=== PATIENT | male | born 1970 | race Caucasian/White ===

== ENCOUNTER 2019-01-31 18:52 | Inpatient (IN) ==
[2019-01-31] MEDS ORDERED: NICOTINE 21 MG/24 HR TDSY TD STA (19:19)
[2019-01-31 19:57] LABS: Appearance Urine Clear (Clear); Bilirubin Urine Negative (Negative); Blood Urine Negative (Negative); Color Urine Yellow; Glucose Urine UA Negative (Negative); Ketones Urine Negative (Negative); Leukocyte Esterase Urine Negative (Negative); Nitrite Urine Negative (Negative); Protein Urine Negative (Negative); Specific Gravity Urine 1.017 (1.000-1.030); Urobilinogen Urine Negative (Negative)
[2019-01-31 20:04] LABS: Basophils # (auto) 0.03 K/uL (0-0.2); Basophils % (auto) 0.6 %; Eosinophils # (auto) 0.01 K/uL (0-0.5); Eosinophils % (auto) 0.2 %; Hematocrit (blood only) 35.3 % (42-52); Hemoglobin 12.2 g/dL (14.0-18.0); Immature Granulocytes # (auto) 0.01 K/uL (0.00-0.02); Immature Granulocytes % (auto) 0.2 %; Lymphocytes # (auto) 1.97 K/uL (1.2-3.4); Lymphocytes % (auto) 40.6 %; Mean Corpuscular Hgb Conc 34.6 g/dL (32-36); Mean Corpuscular Volume 97.8 fL (80-100); Mean Platelet Volume 10.6 fL (7.4-10.4); Monocytes # (auto) 0.48 K/uL (0.11-0.59); Monocytes % (auto) 9.9 %; Neutrophils # (auto) 2.35 K/uL (1.4-6.5); Neutrophils % (auto) 48.5 %; Platelet Count 155 K/uL (130-400); RDW Standard Deviation 45.8 fL (36.4-46.3); Red Blood Count 3.61 M/uL (4.7-6.1); White Blood Count 4.85 K/uL (4.8-10.8)
[2019-01-31 20:22] LABS: Albumin Level 3.8 gm/dl (3.4-5.0); BUN Creatinine Ratio 14.5 (10-20); Calcium 8.7 mg/dl (8.5-10.1); Creatinine Clr Calc Pharmacy 104.3 ml/min; Est GFR (African American) 113.6; Potassium 3.8 mmol/L (3.5-5.1)
[2019-01-31 20:29] LABS: Amphetamines+Metham, Urine Neg (Neg); Barbiturates, Urine Neg (Neg); Benzodiazepine, Urine Neg (Neg); Cocaine, Urine Neg (Neg); MDMA (Ecstacy), Urine Neg (Neg); Methadone, Urine Neg (Neg); Opiate, Urine Neg (Neg); Phencyclidine, Urine Neg (Neg)
[2019-01-31 20:33] LABS: Bilirubin,Total 0.3 mg/dl (0.2-1); Globulin 3.8 gm/dl (2.5-4.0); Total Protein 7.6 gm/dl (6.4-8.2)
[2019-01-31 20:46] LABS: T4 Free Thyroxine 0.73 ng/dl (0.8-1.6)
[2019-01-31 20:53] LABS: Acetaminophen < 2 ug/ml (10-30); Salicylate < 1.7 mg/dl (2.8-20)
[2019-01-31] MEDS ORDERED: HALOPERIDOL LACTATE 5 MG/ML 1 ML VIAL IM STA (21:16)
[2019-01-31] MEDS ORDERED: LORazepam 2 MG/ML VIAL (IM USE) IM STA (21:16)
[2019-01-31] MEDS ORDERED: ALBUTEROL HFA 8 GM INHALER ONE (22:19)
[2019-01-31] MEDS ORDERED: ALBUTEROL HFA 8 GM INHALER INH ONE (22:20)
--- NOTE | 2019-02-01 00:37 | Emergency Department Note ---
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 Per the police officers, the patient's daughter called his neighbor to check on him, and he told the neighbor she "better leave before I kill you and myself." The officers state that the patient said he "wanted to shoot himself and end the pain." The police officers not that that he had a gun under his pillow. Per the police officers, the patient has a history of threatening to shoot himself. The patient states that he texted his daughter that he was "tired and wanted to sleep for a very long time." He reports that his daughter read the text incorrectly, stating that he has no intentions of self-harm. The patient reports that he "woke up on the wrong side of the bed" this morning, but he has been "happy go ben" until today. The patient denies hallucinations, hearing voices, SI, HI, and history of self-harm. He admits to alcohol use every three days and tobacco use. The patient denies any drug use. 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 Clerk Required: No Beliefs That Will Affect Care: None Feels Safe at Home: Yes Smoking Status: Current every day smoker Tobacco Type: smokeless tobacco Review of Systems See HPI for pertinent positives & negatives. and A total of 10 systems reviewed and were otherwise negative Physical Exam Vital Signs Vital Signs - 24 hr 01/31/19 18:55 02/01/19 05:02 02/01/19 05:56 Sepsis Recent Fever Within 48 Hours No Sepsis Action Taken by Nursing No Action Required Pulse Rate [Right] 89 66 Respiratory Rate 18 18 18 Respiratory Effort / Characteristics Non-Labored Spontaneous Non-Labored Spontaneous Non-Labored Respiratory Depth Normal Normal Normal Blood Pressure 141/91 H Blood Pressure [Right Arm] 124/74 135/72 Blood Pressure Mean 107 Blood Pressure Mean [Right Arm] 90 93 Pulse Oximetry 98 96 Oxygen Delivery Method Room Air Room Air GENERAL: Well appearing, well nourished, NAD, non-toxic. Agitated. EYE EXAM: Normal conjunctiva. PERRL, no anisocoria and EOM's grossly intact w/o pain. OROPHARYNX: Moist mucus membranes. Grossly normal dentition. NECK: Supple, no nuchal rigidity, no adenopathy, non-tender. No signs of meningismus. LUNGS: Clear to auscultation. Normal chest wall mechanics. HEART: NSR, no MRG. ABDOMEN: Abdomen soft, non-tender, normo-active bowel sounds, no masses, no rebound or guarding. BACK: No CVA TTP. SKIN: No rashes and no bruising. UPPER EXTREMITIES: Upper extremities are grossly normal. LOWER EXTREMITIES: No pitting edema. No calf pain. NEURO EXAM: A&O x3, cranial nerves II-XII grossly intact, normal speech, moves all 4 extremities on command w/o issue. PSYCH: Negative SI, HI, or AVH. Course 1904: The patient was evaluated in room A08. A complete history and physical exa m was performed. 2152: I had a long conversation with the patient about the plan and his results. 0130: The patient was signed out to Dr. Briceno at the change of shift. Administered Medications Discontinued Medications Albuterol (Ventolin Hfa) Confirm Administered Dose 60 puffs .ROUTE .STK-MED ONE Stop: 01/31/19 22:20 Last Admin: 01/31/19 22:27 Dose: Not Given Documented by: [id number] Albuterol (Ventolin Hfa) 2 puffs INH NOW ONE Stop: 01/31/19 22:21 Last Admin: 01/31/19 22:27 Dose: 2 puffs Documented by: [id number] Gabapentin (Neurontin) 1,200 mg PO TODAY@1400 AMPARO Stop: 02/01/19 14:01 Last Admin: 02/01/19 14:44 Dose: 1,200 mg Documented by: [id number] Haloperidol Lactate (Haldol) 5 mg IM NOW STA Stop: 01/31/19 21:17 Last Admin: 01/31/19 22:26 Dose: Not Given Documented by: [id number] Lorazepam (Ativan) 2 mg IM NOW STA Stop: 01/31/19 21:17 Last Admin: 01/31/19 22:26 Dose: Not Given Documented by: [id number] Nicotine (Nicoderm Cq) 21 mg TD NOW STA Stop: 01/31/19 19:20 Last Admin: 01/31/19 20:05 Dose: Not Given Documented by: [id number] Medical Decision Making Differential Diagnosis Etiologies such as psychiatric disorder, infection, hypoglycemia, electrolyte abnormalities, cardiac sources, intracerebral event, toxicological process, neurologic disorder, as well as others were entertained. Medical Records Attestation: I reviewed the patient's medical records. Home Medications Current Medication List: was personally reviewed by me Laboratory Data Attestation: I reviewed the patient's lab results. Result diagrams: 01/31/19 19:51 01/31/19 19:51 Lab Results 01/31/19 01/31/19 01/31/19 Range/Units 19:51 19:51 19:51 WBC 4.85 (4.8-10.8) K/uL RBC 3.61 L (4.7-6.1) M/uL Hgb 12.2 L (14.0-18.0) g/dL Hct 35.3 L (42-52) % MCV 97.8 (80-100) fL MCH 33.8 (25-34) pg MCHC 34.6 (32-36) g/dL RDW Std Deviation 45.8 (36.4-46.3) fL RDW Coeff of Miranda 13.0 (11.5-14.5) % Plt Count 155 (130-400) K/uL MPV 10.6 H (7.4-10.4) fL Immature Gran % (Auto) 0.2 % Neut % (Auto) 48.5 % Lymph % (Auto) 40.6 % [place] % (Auto) 9.9 % Eos % (Auto) 0.2 % Baso % (Auto) 0.6 % Immature Gran # (Auto) 0.01 (0.00-0.02) K/uL Neut # (Auto) 2.35 (1.4-6.5) K/uL Lymph # (Auto) 1.97 (1.2-3.4) K/uL [place] # (Auto) 0.48 (0.11-0.59) K/uL Eos # (Auto) 0.01 (0-0.5) K/uL Baso # (Auto) 0.03 (0-0.2) K/uL Sodium 144 (136-145) mmol/L Potassium 3.8 (3.5-5.1) mmol/L Chloride 107 (98-107) mmol/L Carbon Dioxide 26 (21-32) mmol/L Anion Gap 11.0 (3-11) BUN 13 (7-18) mg/dl Creatinine 0.92 (0.6-1.4) mg/dl Est Cr Clr Drug Dosing 104.3 ml/min Est GFR ( Amer) 113.6 Est GFR (Non-Af Amer) 98.0 BUN/Creatinine Ratio 14.5 (10-20) Glucose 92 (70-99) mg/dl Calcium 8.7 (8.5-10.1) mg/dl Total Bilirubin 0.3 (0.2-1) mg/dl AST 48 H (15-37) U/L ALT 38 (12-78) U/L Alkaline Phosphatase 66 (45-117) U/L Total Protein 7.6 (6.4-8.2) gm/dl Albumin 3.8 (3.4-5.0) gm/dl Globulin 3.8 (2.5-4.0) gm/dl Albumin/Globulin Ratio 1.0 (0.9-2) TSH 0.299 L (0.300-4.500) uIu/ml Free T4 0.73 L (0.8-1.6) ng/dl Urine Color Urine Appearance (Clear) Urine pH (4.5-7.5) Ur Specific [place] (1.000-1.030) Urine Protein (Negative) Urine Glucose (UA) (Negative) Urine Ketones (Negative) Urine Blood (Negative) Urine Nitrite (Negative) Urine Bilirubin (Negative) Urine Urobilinogen (Negative) Ur Leukocyte Esterase (Negative) Salicylates < 1.7 L (2.8-20) mg/dl Urine Opiates Screen (Neg) Ur Methadone, Qual (Neg) Acetaminophen < 2 L (10-30) ug/ml Urine Barbiturates (Neg) Ur Phencyclidine (PCP) (Neg) U Amphetamin/Meth Scrn (Neg) MDMA (Ecstasy) Screen (Neg) U Benzodiazepines Scrn (Neg) Ur Cocaine Metabolite (Neg) U Marijuana (THC) Screen (Neg) Ethyl Alcohol mg/dL (0-3) mg/dl 01/31/19 01/31/19 01/31/19 Range/Units 19:51 Unknown Unknown WBC (4.8-10.8) K/uL RBC (4.7-6.1) M/uL Hgb (14.0-18.0) g/dL Hct (42-52) % MCV (80-100) fL MCH (25-34) pg MCHC (32-36) g/dL RDW Std Deviation (36.4-46.3) fL RDW Coeff of Miranda (11.5-14.5) % Plt Count (130-400) K/uL MPV (7.4-10.4) fL Immature Gran % (Auto) % Neut % (Auto) % Lymph % (Auto) % [place] % (Auto) % Eos % (Auto) % Baso % (Auto) % Immature Gran # (Auto) (0.00-0.02) K/uL Neut # (Auto) (1.4-6.5) K/uL Lymph # (Auto) (1.2-3.4) K/uL [place] # (Auto) (0.11-0.59) K/uL Eos # (Auto) (0-0.5) K/uL Baso # (Auto) (0-0.2) K/uL Sodium (136-145) mmol/L Potassium (3.5-5.1) mmol/L Chloride (98-107) mmol/L Carbon Dioxide (21-32) mmol/L Anion Gap (3-11) BUN (7-18) mg/dl Creatinine (0.6-1.4) mg/dl Est Cr Clr Drug Dosing ml/min Est GFR ( Amer) Est GFR (Non-Af Amer) BUN/Creatinine Ratio (10-20) Glucose (70-99) mg/dl Calcium (8.5-10.1) mg/dl Total Bilirubin (0.2-1) mg/dl AST (15-37) U/L ALT (12-78) U/L Alkaline Phosphatase (45-117) U/L Total Protein (6.4-8.2) gm/dl Albumin (3.4-5.0) gm/dl Globulin (2.5-4.0) gm/dl Albumin/Globulin Ratio (0.9-2) TSH (0.300-4.500) uIu/ml Free T4 (0.8-1.6) ng/dl Urine Color Yellow Urine Appearance Clear (Clear) Urine pH 5.0 (4.5-7.5) Ur Specific [place] 1.017 (1.000-1.030) Urine Protein Negative (Negative) Urine Glucose (UA) Negative (Negative) Urine Ketones Negative (Negative) Urine Blood Negative (Negative) Urine Nitrite Negative (Negative) Urine Bilirubin Negative (Negative) Urine Urobilinogen Negative (Negative) Ur Leukocyte Esterase Negative (Negative) Salicylates (2.8-20) mg/dl Urine Opiates Screen Neg (Neg) Ur Methadone, Qual Neg (Neg) Acetaminophen (10-30) ug/ml Urine Barbiturates Neg (Neg) Ur Phencyclidine (PCP) Neg (Neg) U Amphetamin/Meth Scrn Neg (Neg) MDMA (Ecstasy) Screen Neg (Neg) U Benzodiazepines Scrn Neg (Neg) Ur Cocaine Metabolite Neg (Neg) U Marijuana (THC) Screen Neg (Neg) Ethyl Alcohol mg/dL 373.2 H (0-3) mg/dl Blood Pressure Blood Pressure Findings: Elevated blood pressure Blood Pressure Disposition: Referred to patients primary care provider MDM Narrative The patient is a 48 white male w/ PMHx of abdominal cancer who presents to the ED w/ CC with episodes of 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 Patient was seen and evaluated the bedside. Patient was brought in by police as the patient had sent a text message and apparently had stated that he was cannot shoot someone and that she is himself. Patient does have access to guns. The patient reportedly is intoxicated. Patient currently denies any acute complaints including SI HI or AVH. The patient initially was hesitant to give b lood and urine but after further discussion he was amenable. Work was obtained along with urinalysis. The patient was ordered a diet and a nicotine patch. Patient's blood work showed mildly low free T4 and an elevated alcohol level. Would be deemed medically clear for evaluation by the psych employment evaluator/case manager at 6 AM. Patient was signed out to the nighttime physician pending evaluation in the morning. Impression & Plan Suicidal ideation, Encounter for tobacco use cessation counseling, Alcohol abuse Discharge Plan Visit Data *Final* Discharge Date/Time: 02/01/19 08:54 Chief Complaint: Mental Health Evaluation Stated Complaint: MENTAL HEALTH EVAL ED Provider: Bethel Lopez Discharge Problem: Suicidal ideation, Encounter for tobacco use cessation counseling, Alcohol abuse Patient Disposition: Admitted As Inpatient Discharge Instructions Interventions: ED Discharge Assessment Last Done: 02/01/19 08:54 The chaloibe's documentation has been prepared under my direction and personally reviewed by me in its entirety. I confirm that the note above accurately reflects all work, treatment, procedures, and medical decision making performed by me.
--- NOTE | 2019-02-01 05:12 | Emergency Department Note ---
ED Visit Note I received this patient in signout at the change of shift from Dr. Walker pending a more sober state for mental health evaluation. Upon my evaluation, the patient stated he has "dying of stomach cancer." He states they diagnosed this at [facility] after they found black spots on his lungs. Patient was questioned about an upper endoscopy and/or the diagnostic tests. Patient denied having an upper endoscopy, stated he did not remember the name of the doctor. He would not sign consent for the medical records to be released stating "they are my records." The fact remains the patient was in an altercation with the state police last night. He threatened his own life and the neighbors life with a gun. I do think he is impulsive and evades questioning now while sober. He is not reliable for outpatient follow-up. The 302 petitioning statement filed by police has been signed. A bed search is currently underway. Case has been signed out to Dr. Lopez pending disposition. .
--- NOTE | 2019-02-01 07:20 | Emergency Department Note ---
ED Visit Note Received patient in signout. Patient here under 302 warrant. Patient was accepted to [address] .
[2019-02-01] MEDS ORDERED: MAGNESIUM HYDROXIDE SUSP 30 ML UDC PO PRN (08:36)
[2019-02-01] MEDS ORDERED: BISMUTH SUBSALICYLATE PER ML OMNICELL CHARGE PO PRN (08:36)
[2019-02-01] MEDS ORDERED: SODIUM CHLORIDE 0.65% NA SOLN 45 ML (OCEAN) PRN (08:36)
[2019-02-01] MEDS ORDERED: ACETAMINOPHEN 325 MG TAB PO PRN (08:36)
[2019-02-01] MEDS ORDERED: ALUMINUM/MAGNESIUM SUSP 30 ML UDC PO PRN (08:36)
--- NOTE | 2019-02-01 10:34 | History & Physical ---
Date of Service February 01, 2019 Impression / Recommendations Risk Factors Assessment Do You Have Access To A Gun?: Yes (1 pistol, kept under pillow) Protective Factors Assessment Employed: No (Recently resigned from [employer]) Psychiatric History Identifying Data ALVIN HEAD is a 48-year-old M who currently lives in [place], [place] alone. Pt denies previous psychiatric history. He was admitted on 02/01/19 08:36 on a 302 involuntary commitment for reports of suicidal statements with access to a pistol and safety concerns expressed by neighbors. Chief Complaint "[]". History of Present Illness Alvin Head (J) is a 48-year-old male admitted involuntarily for mental health treatment on 02/01/19 due to reports of suicidal statements and concerns expressed by patient's daughter and neighbor. 302 petitioning statement was completed by Tpr. Garcia following their encounter - "On 01/31/19 at appx: 1730 Hrs. I arrived at [address] [place] [address] at the request of Wilber Ng. Hernandez related she was asked to check on Alvin Head, a next door neighbor. She related that when she went to the residence Felicitas related that she better leave or he is going to kill her and shoot himself. Felicitas was interviewed and related he wanted to shoot himself to "end the pain". Felicitas does have a pistol under his pillow in the bedroom of residence." Past Psychiatric History Previous Psych History: Denies previous psychiatric history Current Psychiatric Diagnosis: Denies mental health diagnosis Outpatient Services: None, remote history of marriage counseling Previous Psych Admissions: None Do You Have Access To A Gun?: Yes (1 pistol, kept under pillow) History of Previous Suicide Attempt: No Describe Attempts in the Past: Pt denies Past Medication Trials: None Past Head Trauma/Neuro History History of Concussion/Seizure: No Allergies Allergy/AdvReac Type Severity Reaction Status Date / Time No Known Allergies Allergy Verified 02/01/19 08:49 Home Medications Home Medications Medication Instructions Recorded Confirmed Type No Known Home Medications 02/01/19 02/01/19 History Family History Family History of: None Alcohol History Hx of Alcohol Use Over the Past 12 Months: Yes (VICKIE 373 upon arrival; stated he drinks "fequently") Smoking Use tobacco type: smokeless tobacco Smoking Status: Current every day smoker Substance History Hx of Prescription Med Misuse Over the Past 12 Months: No Hx of Over the Counter Med Misuse Over the Past 12 Months: No Hx of Inhalent Misuse Over the Past 12 Months: No Hx of Organic Substance Use Over the Past 12 Months: No Hx of Illegal Substances/Street Drug Use Over Past 12 Months: No Problems as a Result of Past Substance Use: None Identified Personal History Living Arrangements: Apartment Patient History Medical History Cancer Surgical History No significant past surgical history Social History Feels Safe at Home: Yes Smoking Status: Current every day smoker Tobacco Type: smokeless tobacco Physical Exam Vital Signs (Past 24 Hours): Last Vital Signs Pulse 77 02/01/19 08:51 Resp 16 02/01/19 08:51 BP 134/84 02/01/19 08:51 Pulse Ox 96 02/01/19 08:51 Results & Data Laboratory Results Laboratory Results - last 24 hr 01/31/19 01/31/19 01/31/19 19:51 19:51 19:51 WBC 4.85 RBC 3.61 L Hgb 12.2 L Hct 35.3 L MCV 97.8 MCH 33.8 MCHC 34.6 RDW Std Deviation 45.8 RDW Coeff of Miranda 13.0 Plt Count 155 MPV 10.6 H Immature Gran % (Auto) 0.2 Neut % (Auto) 48.5 Lymph % (Auto) 40.6 [place] % (Auto) 9.9 Eos % (Auto) 0.2 Baso % (Auto) 0.6 Immature Gran # (Auto) 0.01 Neut # (Auto) 2.35 Lymph # (Auto) 1.97 [place] # (Auto) 0.48 Eos # (Auto) 0.01 Baso # (Auto) 0.03 Sodium 144 Potassium 3.8 Chloride 107 Carbon Dioxide 26 Anion Gap 11.0 BUN 13 Creatinine 0.92 Est Cr Clr Drug Dosing 104.3 Est GFR ( Amer) 113.6 Est GFR (Non-Af Amer) 98.0 BUN/Creatinine Ratio 14.5 Glucose 92 Calcium 8.7 Total Bilirubin 0.3 AST 48 H ALT 38 Alkaline Phosphatase 66 Total Protein 7.6 Albumin 3.8 Globulin 3.8 Albumin/Globulin Ratio 1.0 TSH 0.299 L Free T4 0.73 L Urine Color Urine Appearance Urine pH Ur Specific [place] Urine Protein Urine Glucose (UA) Urine Ketones Urine Blood Urine Nitrite Urine Bilirubin Urine Urobilinogen Ur Leukocyte Esterase Salicylates < 1.7 L Urine Opiates Screen Ur Methadone, Qual Acetaminophen < 2 L Urine Barbiturates Ur Phencyclidine (PCP) U Amphetamin/Meth Scrn MDMA (Ecstasy) Screen U Benzodiazepines Scrn Ur Cocaine Metabolite U Marijuana (THC) Screen Ethyl Alcohol mg/dL 01/31/19 01/31/19 01/31/19 19:51 Unknown Unknown WBC RBC Hgb Hct MCV MCH MCHC RDW Std Deviation RDW Coeff of Miranda Plt Count MPV Immature Gran % (Auto) Neut % (Auto) Lymph % (Auto) [place] % (Auto) Eos % (Auto) Baso % (Auto) Immature Gran # (Auto) Neut # (Auto) Lymph # (Auto) [place] # (Auto) Eos # (Auto) Baso # (Auto) Sodium Potassium Chloride Carbon Dioxide Anion Gap BUN Creatinine Est Cr Clr Drug Dosing Est GFR ( Amer) Est GFR (Non-Af Amer) BUN/Creatinine Ratio Glucose Calcium Total Bilirubin AST ALT Alkaline Phosphatase Total Protein Albumin Globulin Albumin/Globulin Ratio TSH Free T4 Urine Color Yellow Urine Appearance Clear Urine pH 5.0 Ur Specific [place] 1.017 Urine Protein Negative Urine Glucose (UA) Negative Urine Ketones Negative Urine Blood Negative Urine Nitrite Negative Urine Bilirubin Negative Urine Urobilinogen Negative Ur Leukocyte Esterase Negative Salicylates Urine Opiates Screen Neg Ur Methadone, Qual Neg Acetaminophen Urine Barbiturates Neg Ur Phencyclidine (PCP) Neg U Amphetamin/Meth Scrn Neg MDMA (Ecstasy) Screen Neg U Benzodiazepines Scrn Neg Ur Cocaine Metabolite Neg U Marijuana (THC) Screen Neg Ethyl Alcohol mg/dL 373.2 H Current Inpatient Medications Current Inpatient Medications: Current Inpatient Medications Acetaminophen (Tylenol) 650 mg PO Q4H PRN PRN Reason: Headache or Minor Fever Stop: 03/03/19 08:35 Al Hydrox/Mg Hydrox/Simethicone (Maalox) 30 ml PO Q4H PRN PRN Reason: GI Upset Stop: 03/03/19 08:35 Bismuth Subsalicylate (Kaopectate) 15 ml PO PRN PRN PRN Reason: Loose Stool Stop: 03/03/19 08:35 Hydroxyzine HCl (Vistaril) 50 mg PO HSZ PRN PRN Reason: Insomnia Stop: 03/03/19 08:35 Hydroxyzine HCl (Vistaril) 25 mg PO Q4H PRN PRN Reason: Anxiety Stop: 03/03/19 08:35 Magnesium Hydroxide (Milk Of Magnesia) 30 ml PO DAILY PRN PRN Reason: Heartburn Stop: 03/03/19 08:35 Sodium Chloride ([place] Nasal) 1 - 2 sprays NA PRN PRN PRN Reason: Nasal Dryness/Congestion Stop: 03/03/19 08:35 CPT Code CPT Code Initial Hospital Care: [id number]
[2019-02-01] MEDS ORDERED: LORazepam 1 MG TAB PO PRN (11:27)
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
[2019-02-01] MEDS ORDERED: GABAPENTIN 1200MG ALCOHOL WITHDRAWAL LOAD PO STA (13:42)
[2019-02-01] MEDS ORDERED: GABAPENTIN 600 MG TAB PO SCH (14:00)
[2019-02-01] MEDS: GABAPENTIN 600 MG TAB PO SCH (21:16)
[2019-02-02] MEDS: GABAPENTIN 600 MG TAB PO SCH ×3 (02:07→18:04)
--- NOTE | 2019-02-02 12:19 | Psychiatric Progress Note ---
Date of Service February 02, 2019 Impression / Recommendations Impression Pt reports improvement in mood and overall physical health today. He continues to deny suicidal ideation. It was reported he did reportedly makes suicidal statements with articulation of plan while sober as well as while intoxicated. As collateral is gained, it appears that patient has a much more significant history of alcohol use than initially described. He remains on AWSS protocol with gabapentin taper. Pt requesting discharge tomorrow, and was very upset when this provider explained that a 302 commitment allows up to 5 days of treatment if felt to be necessary. Will continue to gather collateral. Still suggesting involvement of outpatient supports in a family meeting to discuss discharge and aftercare planning and ensure safety. Inpatient treatment is medically necessary given the severity of his presenting symptoms, safety concerns from family, and need to monitor/observe and get collateral information. He is at high risk of harm to self, if discharge prior to solidifying a clear aftercare and safety plan. Given reports from outpatient supports regarding patient's memory concerns - this provider attempted to complete a MMSE. Due to patient's anger regarding length of stay, and limited willingness to speak with this provider following, it would be recommended to assess this at a different time. The information may be helpful in determining the presence of any underlying cognitive concerns. (1) Suicidal ideation: 02/01 - Made suicidal and homicidal statements prior to admission, now denying. Continue to monitor and observe. - Continue involuntary admission to a locked inpatient behavioral health unit, on q15 minute safety checks - Get collateral information clarifying recent symptoms/behaviors/safety concerns. - Encourage participation in group and recreational therapies - Family meeting to involve outpatient supports in safety planning - Arrange appropriate aftercare 02/02 - Continues to deny SI (2) Mood disorder: 02/01 - Denies clear criteria for major depressive disorder or other formal mood disorder, differential includes depression NOS, dysthymia, substance-induced mood disorder, adjustment disorder, acute stress reaction - Gather collateral to determine if medications are indicated, as not indicated based on patient reports alone - There is concern that patient may be minimizing mood-related symptoms - Attempt to gather collateral from family and supports - Schedule family meeting with outpatient support - Appropriate discharge and aftercare planning, outpatient therapist if willing given recent significant medical diagnoses 02/02 - Pt denies mood concerns, continue to rule out any underlying mood concerns via collateral from family - Pt interested in PCP referral, but does not feel therapist or psychiatrist is necessary (3) Alcohol intoxication: 02/01 - BAL of 373.2 on admission, reports having consumed vodka and beer for the majority of the day [employer] - Admits to alcohol use 3-4 days per week, typically consuming "a couple beers with dinner" - Attempting to gather collateral, and concern patient may be minimizing use - will order AWSS protocol - Determine if intervention is necessary, as abuse or dependence is unclear - may require intervention despite feeling alcohol use is not a problem presently 02/02 - Reports willingness to "talk with neighbor" about treatment options, not agreeable to D&A treatment referrals at this time Risk Factors Assessment Male: Yes : Yes Do You Have Access To A Gun?: Yes (1 pistol, kept under pillow) Health Problems: Yes (unknown, but reports "black spots on lungs", concern for cancer diagnosis) Mental Health Diagnoses: No Substance Use Disorders: No (none reported, though alcohol use may be minimized) Previous Attempt: No Family History of Suicide: Yes (cousin - attempted shooting) Previous Psychiatric Hospitalization: No Hopelessness: No Smoker: No Protective Factors Assessment Jainism Beliefs: No : No Responsible for Young Children: No Employed: No (Recently resigned from [employer]) Stable Relationships: No Supportive Family: Yes (22-year old daughter) Interval History Identifying Information KATHLEEN HEAD is a 48-year-old M who currently lives in [place], denies any psychiatric history, and was admitted on 02/01/19 08:36 on a 302 involuntary commitment for threats to harm himself and others. Chief Complaint "I've been fine. Feeling a lot better today." Review of Systems Notes Constitutional: reports overall improvement physically Cardiovascular: denied Respiratory: denied Gastrointestinal: denied Neurological: states, "my tremor is gone", though still observed by this provider Psychiatric: denies symptoms other than stated above Total of at least 10 systems reviewed, pertinent positives as above and in HPI. Sleep Information Total Hours of Sleep: 8 Sleep Comments: staff woke patient for 0200 med. at that time reported " i feel good" and right back to sleep. Meal Information Percent Meal Consumed - Breakfast: 100 Percent Meal Consumed - Lunch: 100 Percent Meal Consumed - Dinner: 100 Subjective Subjective Patient was seen & assessed and interval progress reviewed with Treatment Team. Staff reports the patient has been interacting with peers and attending groups. During treatment team, we reviewed collateral information obtained from daughter, neighbor, and neighbor's DIL - all of which suggest patient is minimizing alcohol use, and verbalized concerns cognitively for the patient. Pt was seen today to assess progress since admission. He states he is doing well today, feeling a lot better. He states that he has enjoyed being on the unit, but is ready to return home as he has bills to pay. Reviewed with patient that we have been obtaining collateral from supports with his permission, and suggested that his alcohol use may be more significant than he initially described. Pt admitted, "it's the vodka, once I start I can't stop. I'm going to stay away from that." Pt states he had asked his neighbor to dump his alcohol supply down the drain prior to his discharge. He declines offers for us to refer for D&A treatment, stating he will explore resources with his neighbor. Pt denies SI, and feels mood is improved "since I haven't had alcohol or snuff. My tremor is gone too. I feel good." Pt again indicates that he will be calling for a ride to pick him up tomorrow afternoon. Pt was reminded of our estimated length of stay of 3-4 days. Pt then becomes very upset, stating he has been here longer than 5 days. Pt was reminded he has not and was informed his 302 early the morning of 02/06. Pt did not agree with this and continues to demand to be discharged tomorrow. He was reminded of steps taken to ensure safety at discharge, including a family meeting and completion of a safety plan. Pt was unhappy with this provider and did not desire to continue the session. Physical Exam Psychiatric Orientation: alert and oriented x 3 Initially cooperative, then defensive and guarded Apperance: appropriately dressed, appropriately groomed and appeared stated age Eye Contact: good eye contact Motor Behavior: + tremor (more mild than yesterday, but present, observed especially in hands & face) Speech: normal rate/rhythm/volume of speech Affect: euthymic affect and + angry affect (after reviewing length of stay) Mood: + angry mood (after reviewing length of stay); no depressed mood and no anxious mood "I feel good, I'm a lot better today", then "Wow, I was a 8-9 out of 10, you just brought me down to a 2." Thought Process: goal directed thought process and clear/coherent thought process Thought Content: reality based without delusions; no hopelessness and no worthlessness Suicidal Thoughts: denies suicidal thoughts Homicidal Thoughts: denies homicidal thoughts Hallucinations: no auditory hallucinations and no visual hallucinations Cognition: attention grossly intact and language grossly intact Estimated Intelligence: consistent with education level Insight: + limited insight Judgement: + limited judgement Vital Signs (Past 24 Hours) Last Vital Signs Temp 36.7 C 02/02/19 08:55 Pulse 69 02/02/19 08:55 Resp 14 02/02/19 08:55 BP 126/84 02/02/19 08:55 Pulse Ox 96 02/01/19 08:51 Results & Data Current Inpatient Medications Current Inpatient Medications: Current Inpatient Medications Acetaminophen (Tylenol) 650 mg PO Q4H PRN PRN Reason: Headache or Minor Fever Stop: 03/03/19 08:35 Al Hydrox/Mg Hydrox/Simethicone (Maalox) 30 ml PO Q4H PRN PRN Reason: GI Upset Stop: 03/03/19 08:35 Bismuth Subsalicylate (Kaopectate) 15 ml PO PRN PRN PRN Reason: Loose Stool Stop: 03/03/19 08:35 Gabapentin (Neurontin) 600 mg PO Q24H AMPARO Stop: 02/05/19 02:01 Gabapentin (Neurontin) 600 mg PO Q8H AMPARO Stop: 02/03/19 02:01 Last Admin: 02/02/19 10:17 Dose: 600 mg Documented by: Gabapentin (Neurontin) 600 mg PO Q12H AMPARO Stop: 02/04/19 02:01 Hydroxyzine HCl (Vistaril) 50 mg PO HSZ PRN PRN Reason: Insomnia Stop: 03/03/19 08:35 Hydroxyzine HCl (Vistaril) 25 mg PO Q4H PRN PRN Reason: Anxiety Stop: 03/03/19 08:35 Lorazepam (Ativan) 1 mg PO ONE PRN; Protocol PRN Reason: EtoH Withdrawal AWSS 6-10 Magnesium Hydroxide (Milk Of Magnesia) 30 ml PO DAILY PRN PRN Reason: Heartburn Stop: 03/03/19 08:35 Sodium Chloride ([place] Nasal) 1 - 2 sprays NA PRN PRN PRN Reason: Nasal Dryness/Congestion Stop: 03/03/19 08:35 Post Discharge Appointments Primary Care Physician Name Of Family Doctor: denies Therapist Name of Therapist: denies Charge Attendant Name of Charge Attendant: denies CPT Code CPT Code 37901
[2019-02-03] MEDS: GABAPENTIN 600 MG TAB PO SCH ×2 (02:03→14:31)
--- NOTE | 2019-02-03 16:58 | Psychiatric Progress Note ---
Date of Service February 03, 2019 Impression / Recommendations Impression Inpatient treatment remains medically necessary given the severity of his presenting symptoms, safety concerns from family, and need to monitor/observe and get collateral information. He is at high risk of harm to self, if discharge prior to solidifying a clear aftercare and safety plan. (1) Suicidal ideation: 02/01 - Made suicidal and homicidal statements prior to admission, now denying. Continue to monitor and observe. - Continue involuntary admission to a locked inpatient behavioral health unit, on q15 minute safety checks - Get collateral information clarifying recent symptoms/behaviors/safety concerns. - Encourage participation in group and recreational therapies - Family meeting to involve outpatient supports in safety planning - Arrange appropriate aftercare 02/02 - Continues to deny SI 02/03 - continues to deny SI (2) Mood disorder: 02/01 - Denies clear criteria for major depressive disorder or other formal mood disorder, differential includes depression NOS, dysthymia, substance-induced mood disorder, adjustment disorder, acute stress reaction - Gather collateral to determine if medications are indicated, as not indicated based on patient reports alone - There is concern that patient may be minimizing mood-related symptoms - Attempt to gather collateral from family and supports - Schedule family meeting with outpatient support - Appropriate discharge and aftercare planning, outpatient therapist if willing given recent significant medical diagnoses 02/02 - Pt denies mood concerns, continue to rule out any underlying mood concerns via collateral from family - Pt interested in PCP referral, but does not feel therapist or psychiatrist is necessary 02/03 - briefly acknowledged stressor of recent possible cancer dx. i strongly suspect avoidance as preferred coping strategy and the etoh use may go along with that. facilitating insight and increasing comfortability with emotional experience would be a goal however likelihood of engagement in ongoing outpatient therapy is poor. Will attempt to pursue the outside medical w/u and facilitate outpatient f/u as appropriate to reduce associated anxiety. 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 not scoring on awss so far. will continue neurontin taper. -continues to decline substance abuse tx referral Risk Factors Assessment Male: Yes : Yes Do You Have Access To A Gun?: Yes (1 pistol, kept under pillow) Health Problems: Yes (unknown, but reports "black spots on lungs", concern for cancer diagnosis) Mental Health Diagnoses: No Substance Use Disorders: No (none reported, though alcohol use may be minimized) Previous Attempt: No Family History of Suicide: Yes (cousin - attempted shooting) Previous Psychiatric Hospitalization: No Hopelessness: No Smoker: No Protective Factors Assessment Mu-Ism Beliefs: No : No Responsible for Young Children: No Employed: No (Recently resigned from [employer]) Stable Relationships: No Supportive Family: Yes (22-year old daughter) Interval History Identifying Information KATHLEEN HEAD is a 48-year-old M who currently lives in [place], denies any psychiatric history, and was admitted on 02/01/19 08:36 on a 302 involuntary commitment for threats to harm himself and others. Chief Complaint "I think I just needed some time to rest". Review of Systems Notes denies SI, HI, AVH. denies confusion. reports tremor is chronic Sleep Information Total Hours of Sleep: 6.5 Sleep Comments: pt on q-15 minute checks Meal Information Percent Meal Consumed - Breakfast: 100 Percent Meal Consumed - Lunch: 100 Percent Meal Consumed - Dinner: 100 Subjective Subjective Patient was seen & assessed and interval progress reviewed with Treatment Team. Per treatment team, patient is on a 302 commitment which is up on the at 06 28. He has not been scoring on the EFRAIN S protocol. Reportedly had a positive visit with his landlady yesterday. Remains on the gabapentin taper. Per primary team sign out patient was angry yesterday wanting to leave. Per that sign out, supplemental information obtained from patient's daughter indicated suicidal statements made recently while sober in addition to the suicidal statements made while intoxicated prior to his presentation. I have not been able to independently confirm this as of yet. On interview today the patient appears non-psychologically minded but engageable. He states he is unable to recall making any specific suicidal threat noted by the police officers 302 petitioning statement. His recollection is that he made a comment "what am I going to do kill myself?" when asked about the weapon under his pillow by police. He consistently denies that he ever intended to shoot himself or anyone else. He denies that he feels suicidal or passive wish presently. While he initially denies acute stressors he later divulges recent medical workup for bloody emesis and cough and tells me that he was diagnosed with "black spots on my lungs and abdominal cancer." He then quickly states that he has been feeling better so he is not worried about it anymore. When I reflected to him that it would be normal to feel anxious or scared facing a new cancer diagnosis he appears more thoughtful and states "maybe that is what I was thinking about a little bit when I grabbed a bottle of vodka that morning." He denies that he entertain thoughts of hastening his own and denies a desire to . In exploring his trauma history further he identifies the of his brother in a motor vehicle accident when he was a senior in high school as a very significant and impactful trauma. Subsequently to that he seems to avoid acknowledging bad news or other stressors. He describes hanging up on his family members if they tell him that they have bad news. Certainly it is a possibility that his long- standing avoidance of doctors may also be a form of avoidant behavior. He tells me today that he has commonly been drinking 5-6 beers per day. He does not perceive this as problematic alcohol use and was educated about healthy alcohol use. He is unable to recall periods of abstinence. He denies any withdrawal symptoms or commonly drinking an eye spray drier but admits he did start drinking the vodka early in the morning on day of presentation here. He does not perceive himself as depressed. He does not believe he is self-medicating with alcohol. He declines any formalized substance abuse treatment. He expresses eagerness for discharge but states understanding that he remains on the involuntary commitment for a period of monitoring for his safety. Physical Exam Psychiatric Orientation: alert, oriented x 3 and cooperative Apperance: appropriately dressed and appropriately groomed Eye Contact: good eye contact Motor Behavior: + tremor Speech: normal rate/rhythm/volume of speech (overinclusive) Affect: + anxious affect (mild) Mood: + anxious mood; no depressed mood and no angry mood Thought Process: goal directed thought process and + circumstantial thought process Thought Content: not paranoid, no delusions, no hopelessness, no loneliness and no self deprecation Suicidal Thoughts: denies suicidal thoughts, denies suicidal plan and denies suicidal intent Homicidal Thoughts: denies homicidal thoughts, denies homicidal plan and denies homicidal intent Hallucinations: no auditory hallucinations, no visual hallucinations and no tactile hallucinations Cognition: recent memory grossly intact Insight: + limited insight Judgement: + fair judgement Vital Signs (Past 24 Hours) Last Vital Signs Temp 36.7 C 02/03/19 16:08 Pulse 109 H 02/03/19 16:08 Resp 16 02/03/19 16:08 BP 130/83 02/03/19 16:08 Pulse Ox 95 02/02/19 22:00 Results & Data Current Inpatient Medications Current Inpatient Medications: Current Inpatient Medications Acetaminophen (Tylenol) 650 mg PO Q4H PRN PRN Reason: Headache or Minor Fever Stop: 03/03/19 08:35 Al Hydrox/Mg Hydrox/Simethicone (Maalox) 30 ml PO Q4H PRN PRN Reason: GI Upset Stop: 03/03/19 08:35 Bismuth Subsalicylate (Kaopectate) 15 ml PO PRN PRN PRN Reason: Loose Stool Stop: 03/03/19 08:35 Gabapentin (Neurontin) 600 mg PO Q24H AMPARO Stop: 02/05/19 02:01 Gabapentin (Neurontin) 600 mg PO Q12H AMPARO Stop: 02/04/19 02:01 Last Admin: 02/03/19 14:31 Dose: 600 mg Documented by: Hydroxyzine HCl (Vistaril) 50 mg PO HSZ PRN PRN Reason: Insomnia Stop: 03/03/19 08:35 Hydroxyzine HCl (Vistaril) 25 mg PO Q4H PRN PRN Reason: Anxiety Stop: 03/03/19 08:35 Lorazepam (Ativan) 1 mg PO ONE PRN; Protocol PRN Reason: EtoH Withdrawal AWSS 6-10 Magnesium Hydroxide (Milk Of Magnesia) 30 ml PO DAILY PRN PRN Reason: Heartburn Stop: 03/03/19 08:35 Sodium Chloride ([place] Nasal) 1 - 2 sprays NA PRN PRN PRN Reason: Nasal Dryness/Congestion Stop: 03/03/19 08:35 Post Discharge Appointments Primary Care Physician Name Of Family Doctor: [facility] - Dr. Foreman Primary Care Date of Appointment with PCP: 02/08/19 Time of Appointment with PCP: 11:00 a.m. (please bring photo ID and completed paperwork) Provider Appointment Comment: [address] [place] [address], [place] Case Therapist Name of Therapist: mistyies [employer] Cloud Consulting Architect Name of Openstack Cloud Consulting Architect: michael Contact Information Discharge Discharge Address: [address] [facility] [id number] CPT Code CPT Code 17576
[2019-02-03] MEDS: FOLIC ACID 400 MCG TAB PO SCH (19:05)
[2019-02-03] MEDS: CEROVITE ADV FORMULA TAB PO SCH (19:05)
[2019-02-03] MEDS: THIAMINE HCL 100 MG TAB PO SCH (21:16)
[2019-02-04] MEDS: GABAPENTIN 600 MG TAB PO SCH (02:03)
[2019-02-04] MEDS: FOLIC ACID 400 MCG TAB PO SCH (08:50)
[2019-02-04] MEDS: CEROVITE ADV FORMULA TAB PO SCH (08:50)
[2019-02-04] MEDS: THIAMINE HCL 100 MG TAB PO SCH ×3 (08:50→21:25)
--- NOTE | 2019-02-04 12:45 | Psychiatric Progress Note ---
Date of Service February 04, 2019 Impression / Recommendations Impression This is an interesting patient. There is certainly a possibility that he is demonstrating mild cognitive dysfunction as a symptom of his chronic excessive alcohol use and continued monitoring on an outpatient basis would be prudent which might include neuropsych testing. I do not have access presently to any recent neuroimaging to see if there might be structural pathology suggesting likelihood of Korsakoff's syndrome. He continues to deny suicidal ideation and will likely be discharged to outpatient follow-up tomorrow as his 302 will on the at 0628. Prior to discharge we will work to facilitate outpatient medical follow-up as well as substance abuse counseling referral as he expresses willingness to do so today. (1) Suicidal ideation: 02/01 - Made suicidal and homicidal statements prior to admission, now denying. Continue to monitor and observe. - Continue involuntary admission to a locked inpatient behavioral health unit, on q15 minute safety checks - Get collateral information clarifying recent symptoms/behaviors/safety concerns. - Encourage participation in group and recreational therapies - Family meeting to involve outpatient supports in safety planning - Arrange appropriate aftercare 02/02 - Continues to deny SI 02/03 - continues to deny SI 02/04 -Continues to deny suicidal ideation. Denies homicidal ideation. (2) Mood disorder: 02/01 - Denies clear criteria for major depressive disorder or other formal mood disorder, differential includes depression NOS, dysthymia, substance-induced mood disorder, adjustment disorder, acute stress reaction - Gather collateral to determine if medications are indicated, as not indicated based on patient reports alone - There is concern that patient may be minimizing mood-related symptoms - Attempt to gather collateral from family and supports - Schedule family meeting with outpatient support - Appropriate discharge and aftercare planning, outpatient therapist if willing given recent significant medical diagnoses 02/02 - Pt denies mood concerns, continue to rule out any underlying mood concerns via collateral from family - Pt interested in PCP referral, but does not feel therapist or psychiatrist is necessary 02/03 - briefly acknowledged stressor of recent possible cancer dx. i strongly suspect avoidance as preferred coping strategy and the etoh use may go along with that. facilitating insight and increasing comfortability with emotional experience would be a goal however likelihood of engagement in ongoing outpatient therapy is poor. Will attempt to pursue the outside medical w/u and facilitate outpatient f/u as appropriate to reduce associated anxiety. 02/04 -Patient endorses euthymic mood at present. -Acute mood disturbance may have been a function of alcohol intoxication. 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 not scoring on awss so far. will continue neurontin taper. -continues to decline substance abuse tx referral 02/04 -chronic alcohol use d/o appears likely -Continue with AWSS protocol and gabapentin taper -Patient now accepting of outpatient substance abuse counseling referral -continue folate, thiamine, and multivitamin -requires PCP f/u and can consider neuro c/s as outpatient as well as neuropsych testing to better clarify deficits Risk Factors Assessment Male: Yes : Yes Do You Have Access To A Gun?: Yes (1 pistol, kept under pillow) Health Problems: Yes (unknown, but reports "black spots on lungs", concern for cancer diagnosis) Mental Health Diagnoses: No Substance Use Disorders: No (none reported, though alcohol use may be minimized) Previous Attempt: No Family History of Suicide: Yes (cousin - attempted shooting) Previous Psychiatric Hospitalization: No Hopelessness: No Smoker: No Protective Factors Assessment Latter-Day Beliefs: No : No Responsible for Young Children: No Employed: No (Recently resigned from [employer]) Stable Relationships: No Supportive Family: Yes (22-year old daughter) Interval History Identifying Information KATHLEEN HEAD is a 48-year-old M who currently lives in [place], denies any psychiatric history, and was admitted on 02/01/19 08:36 on a 302 involuntary commitment for threats to harm himself and others. Chief Complaint "I am doing good". Review of Systems Notes Denies feeling depressed, denies anxiety, denies hallucinations, denies confusion, denies increased tremor Sleep Information Total Hours of Sleep: 7 Sleep Comments: pt on q-15 minute checks Meal Information Percent Meal Consumed - Breakfast: 100 Percent Meal Consumed - Lunch: 100 Percent Meal Consumed - Dinner: 100 Subjective Subjective Patient was seen & assessed and interval progress reviewed with Treatment Team. Staff report the patient appeared angry and frustrated that he was not discharged yesterday but did not act out. We have not received any outside records to confirm his self report of recent cancer diagnosis. After review of record yesterday it appears there is concern for possible confabulation at baseline which may be a symptom of long-standing alcohol use however obvious evidence of anterograde amnesia and confabulation is not readily appreciable on interview again today. He continues to deny suicidal ideation. He does give a variable self report in some regard expressing frustration that he has to share things with strangers in group but later states that the group has really helped him and he feels well accepted which seems to feel good to him. He denies feeling depressed. He denies feeling anxious or symptoms of alcohol withdrawal. Blood pressure and heart rate were a little elevated last evening and early this morning but subsequently normalized. Attempted to have another gin conversation about the risks associated with chronic excessive alcohol use with him. He expressed willingness to try to cut down or possibly even abstain and indicated willingness to accept referral for outpatient substance abuse treatment. He also indicated potential willingness to try Alcoholics Anonymous and is aware of the local meeting place at a buddhism near him. Physical Exam Psychiatric Orientation: alert and cooperative Apperance: appropriately dressed and appropriately groomed Eye Contact: good eye contact Motor Behavior: + tremor (Unchanged) Speech: normal rate/rhythm/volume of speech Affect: euthymic affect Mood: no depressed mood and no anxious mood Thought Process: goal directed thought process (However he appears mildly self contradicting at times) No evidence of bizarre delusions or provable confabulations at this point Suicidal Thoughts: denies suicidal thoughts, denies suicidal plan and denies suicidal intent Homicidal Thoughts: denies homicidal thoughts, denies homicidal plan and denies homicidal intent Hallucinations: no auditory hallucinations, no visual hallucinations and no tactile hallucinations Cognition: attention grossly intact Insight: + limited insight Judgement: + limited judgement Vital Signs (Past 24 Hours) Last Vital Signs Temp 36.7 C 02/04/19 09:05 Pulse 81 02/04/19 09:05 Resp 18 02/04/19 09:05 BP 130/83 02/04/19 09:05 Pulse Ox 95 02/02/19 22:00 Results & Data Current Inpatient Medications Current Inpatient Medications: Current Inpatient Medications Acetaminophen (Tylenol) 650 mg PO Q4H PRN PRN Reason: Headache or Minor Fever Stop: 03/03/19 08:35 Al Hydrox/Mg Hydrox/Simethicone (Maalox) 30 ml PO Q4H PRN PRN Reason: GI Upset Stop: 03/03/19 08:35 Bismuth Subsalicylate (Kaopectate) 15 ml PO PRN PRN PRN Reason: Loose Stool Stop: 03/03/19 08:35 Folic Acid (Folvite) 400 mcg PO QAM AMPARO Stop: 03/05/19 17:29 Last Admin: 02/04/19 08:50 Dose: 400 mcg Documented by: Gabapentin (Neurontin) 600 mg PO Q24H AMPARO Stop: 02/05/19 02:01 Hydroxyzine HCl (Vistaril) 50 mg PO HSZ PRN PRN Reason: Insomnia Stop: 03/03/19 08:35 Hydroxyzine HCl (Vistaril) 25 mg PO Q4H PRN PRN Reason: Anxiety Stop: 03/03/19 08:35 Lorazepam (Ativan) 1 mg PO ONE PRN; Protocol PRN Reason: EtoH Withdrawal AWSS 6-10 Magnesium Hydroxide (Milk Of Magnesia) 30 ml PO DAILY PRN PRN Reason: Heartburn Stop: 03/03/19 08:35 Multivitamins/Minerals (Multivitamin W/ Minerals Tab) 1 tab PO QAM AMPARO Stop: 03/05/19 17:29 Last Admin: 02/04/19 08:50 Dose: 1 tab Documented by: Sodium Chloride ([place] Nasal) 1 - 2 sprays NA PRN PRN PRN Reason: Nasal Dryness/Congestion Stop: 03/03/19 08:35 Thiamine HCl (Vitamin B-1) 100 mg PO TID AMPARO Stop: 02/17/19 20:59 Last Admin: 02/04/19 08:50 Dose: 100 mg Documented by: Post Discharge Appointments Primary Care Physician Name Of Family Doctor: [facility] - Dr. Foreman Primary Care Date of Appointment with PCP: 02/08/19 Time of Appointment with PCP: 11:00 a.m. (please bring photo ID and completed paperwork) Provider Appointment Comment: [address], [place] Case Therapist Name of Therapist: mistyies Director Of Labor And Delivery Name of Director Of Labor And Delivery: michael Contact Information Discharge Discharge Address: [address] [place] [address], [place] [id number] CPT Code CPT Code 84843
[2019-02-05] MEDS ORDERED: GABAPENTIN 600 MG TAB PO SCH (02:00)
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
[2019-02-05] MEDS: CEROVITE ADV FORMULA TAB PO SCH (09:32)
[2019-02-05] MEDS: FOLIC ACID 400 MCG TAB PO SCH (09:32)
[2019-02-05] MEDS: THIAMINE HCL 100 MG TAB PO SCH (09:32)
== END 2019-02-05 14:45 | disposition home or self-care (01) | DRG 897 ==
LOC: ED 18:52 → 3S 02-01 08:36
DX: F17.220 Nicotine dependence, chewing tobacco, uncomplicated; R45.851 Suicidal ideations; F10.14 Alcohol abuse with alcohol-induced mood disorder